=== PATIENT | female | born 1960 | race Caucasian/White ===

== ENCOUNTER 2024-02-07 14:50 | Emergency (ER) | payer BC, MEDICAID ==
[~2024-02-07] VITALS: Ht 162.6 cm; Wt 77.1 kg
[2024-02-07 15:01] VITALS: BP_SYST 174; PULSE 90; RESP 20; TEMP 98.3; O2SAT 98
[2024-02-07 17:44] LABS: BASOPHILS % (AUTO) 0.4 % (0.0-2.0); EOSINOPHILS # (AUTO) 0.1 K/uL (0.0-0.4); EOSINOPHILS % (AUTO) 1.5 % (0.0-4.0); HEMATOCRIT 40.2 % (36-48); LYMPHOCYTES # (AUTO) 1.8 K/uL (1.0-5.5); LYMPHOCYTES % (AUTO) 29.2 % (20.5-51.5); MEAN CORPUSCULAR HEMOGLOBIN 30 pg (27-31); MEAN CORPUSCULAR HGB CONC 35 % (32-36); MEAN CORPUSCULAR VOLUME 87 fL (79.0-98.0); MONOCYTES # (AUTO) 0.4 K/uL (0.0-1.0); NEUTROPHILS # (AUTO) 3.9 K/uL (1.8-7.7); NEUTROPHILS % (AUTO) 61.9 % (40.0-70.0); PLATELET COUNT (AUTO) 168 K/uL (130-430); RED BLOOD CELL COUNT(AUTO) 4.61 MIL/uL (4.2-6.2); RED CELL DISTRIBUTION WIDTH 13.2 % (9.0-15.0); WHITE BLOOD COUNT (AUTO) 6.3 K/uL (4.8-10.8)
[2024-02-07] MEDS: NACL 0.9% 1,000 ML IV ONE (17:44)
[2024-02-07] MEDS: INSULIN REGULAR, HUMAN 10 UNITS/0.1 ML, 3 ML VIAL IVP ONE (17:51)
[2024-02-07 18:14] LABS: ANION GAP 6 (5-15); CALCIUM 9.7 mg/dL (8.4-11.0); CARBON DIOXIDE 32 mmol/L (23-29); CHLORIDE 103 mmol/L (98-107); GFR AFRICAN AMERICAN 53 mL/min (>90); GLUCOSE 351 mg/dL (74-106); POTASSIUM 4.6 mmol/L (3.5-5.1); SODIUM SERUM 141 mmol/L (136-145); UREA NITROGEN, BLOOD 32 mg/dL (8-21)
[2024-02-07 18:17] LABS: GFR NON AFRICAN-AMERICAN 44 mL/min (>90)
[2024-02-07 19:15] VITALS: BP_SYST 146; PULSE 62; RESP 18; TEMP 97.9; O2SAT 98
== END 2024-02-07 19:14 | disposition home or self-care (01) ==
LOC: SED 14:50
DX: E11.65 Type 2 diabetes mellitus with hyperglycemia (principal); R42 Dizziness and giddiness; I10 Essential (primary) hypertension; Z79.4 Long term (current) use of insulin
CPT/HCPCS: 99285; 96374; 71045; 96361; 80048; 83880; 85025; 84484; 36415; 93005; 82948; J1815; J7030